=== PATIENT | male | born 1960 | race Caucasian/White ===

== ENCOUNTER 2025-08-09 11:36 | Emergency (ER) | payer MEDICARE ==
[~2025-08-09] VITALS: Ht 185.4 cm; Wt 97.9 kg
[2025-08-09] MEDS ORDERED: SIMV10TA21 PO (11:49)
[2025-08-09] MEDS ORDERED: FURO40TA2 PO (11:49)
[2025-08-09] MEDS ORDERED: SPIR50TA4 PO (11:49)
[2025-08-09] MEDS ORDERED: CARV6.25 PO (11:49)
[2025-08-09 15:14] VITALS: BP 123/58; TEMP 96.7; O2SAT 100
== END 2025-08-09 15:18 | disposition home or self-care (01) ==
LOC: M ED 11:36
DX: T81.89XA Other complications of procedures, not elsewhere classified, initial encounter (principal); L76.21 Postprocedural hemorrhage of skin and subcutaneous tissue following a dermatologic procedure; I10 Essential (primary) hypertension; E78.5 Hyperlipidemia, unspecified; Z79.899 Other long term (current) drug therapy

== ENCOUNTER → 2025-08-14 | Outpatient (CLI) | payer MEDICARE ==
[~2025-08-14] MED LIST: CARV6.25 PO; FURO40TA2 PO; SIMV10TA21 PO; SPIR50TA4 PO
[2025-08-14 18:00] LABS: ALT/SGPT 14.0 U/L (7.0-40); AST/SGOT 61.0 U/L (<34); CALCIUM LEVEL 9.0 MG/DL (8.3-10.6); CARBON DIOXIDE LEVEL 22.0 MMOL/L (20-31); CHLORIDE LEVEL 99.0 MMOL/L (98-107); CREATININE FOR GFR 0.96 MG/DL (0.70-1.30); GLOMERULAR FILTRATION RATE 87.2 (>49); POTASSIUM SERUM 4.3 MMOL/L (3.5-5.1); SODIUM LEVEL 131.0 MMOL/L (136-145)
[2025-08-14 18:03] LABS: PLATELET COUNT, AUTOMATED 127 10^3/uL (150-450)
== END ==
LOC: M WUC 14:41
PROVIDERS: ATTEND Plastic Surgery Surgery of the Hand
DX: C44.319 Basal cell carcinoma of skin of other parts of face (principal)

== ENCOUNTER 2025-08-15 08:41 | Inpatient (IN) | payer MEDICARE ==
[2025-08-15] VITALS (14 sets, daily range): BP systolic 121–147; BP diastolic 59–78; TEMP 97.6–98.8; O2SAT 92–97
[~2025-08-15] VITALS: Ht 185.4 cm; Wt 99.7 kg
[2025-08-15 09:35] LABS: BASO # 0.1 10^3/uL (0.0-0.2); BASO % 1.0 % (0.0-1.0); EOS # 0.1 10^3/uL (0.0-0.5); EOS % 2.0 % (0.0-3.0); LYMPH # 0.7 10^3/uL (1.5-5.0); LYMPH % 11.9 % (24.0-44.0); MONO # 0.9 10^3/uL (0.0-0.8); MONO % 14.5 % (2.0-8.0); NEUTROPHILS # 4.3 10^3/uL (1.5-8.5); NEUTROPHILS % 70.1 % (36.0-66.0); PLATELET COUNT, AUTOMATED 117 10^3/uL (150-450)
[2025-08-15 09:59] LABS: ALT/SGPT 13.0 U/L (7.0-40); AST/SGOT 61.0 U/L (<34); CALCIUM LEVEL 8.7 MG/DL (8.3-10.6); CARBON DIOXIDE LEVEL 22.0 MMOL/L (20-31); CHLORIDE LEVEL 99.0 MMOL/L (98-107); CREATININE FOR GFR 1.02 MG/DL (0.70-1.30); GLOMERULAR FILTRATION RATE 81.1 (>49); POTASSIUM SERUM 4.1 MMOL/L (3.5-5.1); SODIUM LEVEL 132.0 MMOL/L (136-145)
[2025-08-15] MEDS ORDERED: HOME MED LIST COMPLETE! XX SCH (11:00)
[2025-08-15] MEDS ORDERED: ISOVUE-370 76% 100 ML VIAL As Ordered ONE (12:53)
[2025-08-15] MEDS: FUROSEMIDE 40 MG TAB PO SCH (16:34)
[2025-08-15] MEDS: SPIRONOLACTONE 50 MG TAB PO SCH (16:34)
[2025-08-15 17:28] LABS: PLATELET COUNT, AUTOMATED 101 10^3/uL (150-450)
[2025-08-15] MEDS: SIMVASTATIN 10 MG TAB PO SCH (20:15)
[2025-08-16 00:05] VITALS: BP 127/68; TEMP 97.9; O2SAT 98
[2025-08-16 05:53] VITALS: BP 127/68; TEMP 98.1; O2SAT 93
[2025-08-16 06:43] LABS: PLATELET COUNT, AUTOMATED 109 10^3/uL (150-450)
[2025-08-16 07:11] LABS: CALCIUM LEVEL 8.8 MG/DL (8.3-10.6); CARBON DIOXIDE LEVEL 21 MMOL/L (20-31); CHLORIDE LEVEL 100 MMOL/L (98-107); CREATININE FOR GFR 0.91 MG/DL (0.70-1.30); GLOMERULAR FILTRATION RATE > 90.0 (>49); POTASSIUM SERUM 4.0 MMOL/L (3.5-5.1); SODIUM LEVEL 132 MMOL/L (136-145)
[2025-08-16] MEDS ORDERED: ONDANSETRON 4MG 2ML VIAL As Ordered ONE (07:27)
[2025-08-16] MEDS ORDERED: MIDAZOLAM INJ 2 MG/2 ML VIAL As Ordered ONE (07:27)
[2025-08-16] MEDS ORDERED: LIDOCAINE 2% 100 MG/5 ML SDV (FOR ANES.) As Ordered ONE (07:27)
[2025-08-16] MEDS ORDERED: dexmedeTOMIDine (4 MCG/ML) 200 MCG/50 ML BTL As Ordered ONE (07:56)
[2025-08-16] MEDS: POVIDONE-IODINE 5% OPHTH PREP SOL 30ML As Ordered ONE (08:20)
[2025-08-16] MEDS: LIDOCAINE W/EPINEPHrine 1% 20 ML VIAL As Ordered ONE (08:46)
[2025-08-16] MEDS ORDERED: MULTIVITAMINS/MINERALS THERAP 1 TAB PO SCH (09:00)
[2025-08-16] MEDS ORDERED: FOLIC ACID 1 MG TAB PO SCH (09:00)
[2025-08-16] MEDS ORDERED: THIAMINE 100 MG TAB PO SCH (09:00)
[2025-08-16] MEDS ORDERED: ONDANSETRON 4MG 2ML VIAL IV PRN (09:35)
[2025-08-16] MEDS ORDERED: HYDROMORPHONE HCL 0.5 MG/0.5 ML SYRINGE IV PRN (09:35)
[2025-08-16 11:20] VITALS: BP 127/67; TEMP 97.5; O2SAT 90
[2025-08-16 11:50] VITALS: BP 142/80; TEMP 97.7; O2SAT 90
[2025-08-16 12:20] VITALS: BP 134/76; TEMP 97.3; O2SAT 93
[2025-08-16 13:20] VITALS: BP 137/76; TEMP 97.7; O2SAT 92
== END 2025-08-16 15:04 | disposition home or self-care (01) | DRG 920 ==
LOC: M ED 08:41 → M ED INP 11:21 → M MS5PR 14:35
PROVIDERS: ADMIT Internal Medicine; ATTEND Internal Medicine
PROC: 30233N1 Transfusion of Nonautologous Red Blood Cells into Peripheral Vein, Percutaneous Approach (ICD-10-PCS; 2025-08-15)
PROC: 0JB10ZX Excision of Face Subcutaneous Tissue and Fascia, Open Approach, Diagnostic (ICD-10-PCS; principal; 2025-08-16 07:30)
DX: L76.21 Postprocedural hemorrhage of skin and subcutaneous tissue following a dermatologic procedure (principal); D62 Acute posthemorrhagic anemia; R58 Hemorrhage, not elsewhere classified; K70.30 Alcoholic cirrhosis of liver without ascites; I10 Essential (primary) hypertension; E78.00 Pure hypercholesterolemia, unspecified; E78.5 Hyperlipidemia, unspecified; Z85.46 Personal history of malignant neoplasm of prostate